=== PATIENT | male | born 1955 | race Caucasian/White ===

== ENCOUNTER 2021-09-08 08:37 | Day surgery (SDC) | payer OTHER ==
[~2021-09-08] VITALS: Ht 191 cm; Wt 118.0 kg
[~2021-09-08 08:37] MED LIST: ATORVASTATIN CA20 MG PO; BACLOFEN 10MG T10 MG PO; BUSPIRONE HCL10 MG PO; MEDROL 4MG DOSEP4 MG PO; METOPROLOL SUCC25 MG PO; SERTRALINE HCL100 MG PO
[2021-09-08] MEDS ORDERED: ASPIRIN81 MG PO (14:49)
--- NOTE | 2021-09-08 15:25 | NUR ---
PT HAD A LRTSR THIS DATE. NO NEEDS ANTICIPATED.
[2021-09-09 07:08] LABS: BASOPHIL 0.1 % (0-2); EOSINOPHIL 0.5 % (0-7); HCT 38.7 % (42.0-52.0); HGB 12.2 g/dl (13.2-18.0); LYMPHOCYTE 16.4 % (15-48); MCH 29.3 pg (25.0-31.0); MCHC 31.5 g/dL (32.0-36.0); MONOCYTE 7.1 % (0-12); NEUTROPHIL 75.5 % (41-80); NRBC 0; PLT 223 K/uL (150-400); RBC 4.16 M/uL (4.70-6.00); RDW 13.9 % (11.5-14.0); WBC 9.7 K/uL (4.0-10.5)
[2021-09-09 07:32] LABS: BUN/CREAT RATIO (CALC) 18.3 RATIO; CREATININE 0.82 mg/dL (0.67-1.17); POTASSIUM 4.2 mmol/L (3.5-5.1)
[2021-09-09] MEDS ORDERED: FEOSOL325 MG PO (08:46)
== END 2021-09-09 11:40 | disposition home or self-care (01) ==
LOC: FAS 08:37 → FMS 10:30 → EDSTATUS 10:30 → FAS 10:30 → FMS 10:48 → FAS 09-09 11:40
PROVIDERS: Orthopaedic Surgery
DX: M19.012 Primary osteoarthritis, left shoulder (principal); M75.102 Unspecified rotator cuff tear or rupture of left shoulder, not specified as traumatic; I10 Essential (primary) hypertension; E78.5 Hyperlipidemia, unspecified; F41.8 Other specified anxiety disorders
CPT/HCPCS: 36415; 73020; 80048; 85025; 86850; 86900; 86901; 94010; 94762; 97162; 97166; 97530-GP; 97535; C1713; C1776; J0171; J0697; J1100; J1885; J2250; J2270; J2704; J2795; J7120